=== PATIENT | male | born 1985 | race Two or more races ===

== ENCOUNTER 2016-11-14 16:34 | Inpatient (IN) | payer BC ==
[~2016-11-14] VITALS: Ht 162.6 cm; Wt 99.9 kg
[2016-11-14 17:52] LABS: BASOPHIL % 0.7 % (0-2); PLATELET COUNT 220 x10^3mcL (130-400); RED CELL DISTRIBUTION WIDTH 12.9 % (11.5-14.5)
[2016-11-14 17:57] LABS: CALCIUM 8.9 mg/dL (8.5-10.1); CARBON DIOXIDE 25.6 mmol/L (21-32); CHLORIDE SERUM 105 mmol/L (98-107); CREATININE SERUM 0.9 mg/dL (0.7-1.3); GFR1 > 60 mL/min; GLUCOSE SERUM 100 mg/dL (74-106); POTASSIUM SERUM 3.6 mmol/L (3.5-5.1); SODIUM SERUM 137 mmol/L (136-145)
[2016-11-14 18:02] LABS: ALBUMIN 3.9 g/dL (3.4-5.0); ALKALINE PHOSPHATASE 54 U/L (46-116); ALT/SGPT 62 U/L (16-63); AST/SGOT 28 U/L (15-37); BILIRUBIN TOTAL 0.2 mg/dL (0.20-1.00)
[2016-11-14 20:14] VITALS: BP 112/63
[2016-11-14 20:26] LABS: AMYLASE 37 U/L (25-115); HDL CHOLESTEROL 40 mg/dL (40-60); LIPASE 146 IU/L (73-393); MAGNESIUM 2.3 mg/dL (1.8-2.4); PHOSPHOROUS 3.5 mg/dL (2.5-4.9)
[2016-11-14 20:27] LABS: CHOLESTEROL 211 mg/dL (<200); CHOLESTEROL/HDL RATIO 5.3; TRIGLYCERIDES 453 mg/dL (<150)
[2016-11-14 20:32] LABS: T3 TOTAL 1.03 ng/mL
[2016-11-14 20:34] LABS: FREE T4 1.03 ng/dL (0.76-1.46); FREE THYROXINE INDEX 2.6 ug/dL (1.4-4.5); T4(THYROXINE) 7.1 ug/dL (4.7-13.3)
[2016-11-14 21:06] VITALS: BP 112/63
[2016-11-15 02:25] LABS: UA SPECIFIC GRAVITY 1.015 (1.005-1.035); microscopic required? YES; urine erythrocyte TRACE (NEGATIVE)
[2016-11-15 05:51] VITALS: BP 118/57
[2016-11-15 09:46] VITALS: BP 109/67
[2016-11-15 13:51] VITALS: BP 106/69
[2016-11-15 17:18] VITALS: BP 110/70
[2016-11-15 17:31] VITALS: BP 107/62
[2016-11-15] MEDS ORDERED: ECO81 PO (17:38)
[2016-11-15] MEDS ORDERED: LIPI10 PO (17:38)
[2016-11-15 18:20] VITALS: BP 110/70
== END 2016-11-15 19:14 | disposition home or self-care (01) | DRG 311 ==
LOC: ED 16:34 → DU 19:33
PROVIDERS: Emergency Medicine; ADMIT Family Medicine
DX: I20.9 Angina pectoris, unspecified (principal); R73.03 Prediabetes; E78.2 Mixed hyperlipidemia; K76.0 Fatty (change of) liver, not elsewhere classified; E02 Subclinical iodine-deficiency hypothyroidism; E66.9 Obesity, unspecified; Z68.37 Body mass index [BMI] 37.0-37.9, adult; F17.210 Nicotine dependence, cigarettes, uncomplicated
CPT/HCPCS: 82962; 83880; 84439; 85378; J7030; Q0092; Q9967